=== PATIENT | female | born 1995 ===

== ENCOUNTER 2017-04-21 09:34 | Day surgery (SDC) | payer OTHER ==
[2017-04-16 10:45] VITALS: BMI 29.2
[2017-04-21] MEDS ORDERED: Propofol 10 mg/ml Inj (20 ML) ONE (12:17)
[2017-04-21] MEDS ORDERED: Midazolam 2 MG/2 ML VIAL ONE (12:17)
[2017-04-21] MEDS ORDERED: Lidocaine 1% Inj (20ml) ONE (12:19)
[2017-04-21] MEDS ORDERED: Bupivacaine HCl 0.25% PF (10 ml) Inj ONE (12:19)
[2017-04-21] MEDS ORDERED: ceFAZolin 1 gm FROZEN Premix 1 GM/50 ML ML IVPB ONE (12:19)
[2017-04-21] MEDS ORDERED: Lactated Ringer's 1,000 ML IV ONE ×2 (12:20→12:54)
[2017-04-21] MEDS ORDERED: Bupivacaine/Epi 0.25%-1:200,000 10 ml PF inj IJ ONE (12:29)
[2017-04-21] MEDS ORDERED: Bacitracin Ointment 30 GM TUBE ONE (12:42)
[2017-04-21] MEDS ORDERED: HYDROmorphone 0.5 mg/0.5 ml ISec IVP PRN (12:55)
[2017-04-21] MEDS ORDERED: Oxycodone/Acetaminophen 5/325 mg Tab PO PRN (13:53)
[2017-04-21 15:41] VITALS: TEMP 97
[2017-04-21 15:47] VITALS: BP 91/50; PULSE 62; RESP 18; O2SAT 100
--- NOTE | 2017-04-21 17:04 | OP ---
PROCEDURE DATE: 04/21/2017 PREOPERATIVE DIAGNOSIS: Mass of the scalp. POSTOPERATIVE DIAGNOSIS: Mass of the scalp. PROCEDURE PERFORMED: 1. Wide and deep excision 5 cm mass of scalp (56051). 2. Greater than 30 square centimeter adjacent tissue transfer closure (17107). SURGEON: Roberto Gutierrez MD ANESTHESIA: General. ESTIMATED BLOOD LOSS: 30 mL. POSTOPERATIVE CONDITION: Stable. INDICATIONS FOR SURGERY: This is a 21-year-old female with a large mass of her scalp and will now un dergo wide and deep excision. DESCRIPTION OF PROCEDURE: The patient taken to the operating room. IV sedation was administered and the right temporal area of the scalp was shaved, prepped, and draped. A generous elliptical incisio n was made surrounding the mass and the mass was completely dissected free into the scalp aponeurosis . Bleeding was controlled using the Bovie. Generous tissue flaps were raised using the Bovie, which was widely undermined and an adjacent tissue transfer closure of greater than 30 square cm was perfo rmed by using multiple layers of Monocryl, subcuticular Monocryl, and skin clips. The patient tolera maribel procedure well, returned to recovery room in stable condition. Roberto Gutierrez MD cc: [id number] TT: 04/21/2017 17:03:14 ok
== END 2017-04-21 15:49 | disposition home or self-care (01) ==
LOC: C.SDS 09:34
PROVIDERS: ATTEND Surgery
DX: L72.11 Pilar cyst (principal)
CPT/HCPCS: 11426; 88307; J0690; J2250; J2704; J3010; J7120